=== PATIENT | male | born 1990 | race Two or more races ===

== ENCOUNTER 2020-02-13 12:52 | Emergency (ER) | payer OTHER ==
[~2020-02-13] VITALS: Ht 167.6 cm; Wt 52.2 kg
[2020-02-13 13:10] VITALS: BP 122/75
[2020-02-13] MEDS ORDERED: IBUPROFEN600 M1 ORAL (14:22)
[2020-02-13] MEDS ORDERED: TRAMADOL HCL50 MG ORAL (14:22)
[2020-02-13] MEDS ORDERED: ROBAXIN-500MG ORAL (14:22)
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
[2020-02-13] MEDS ORDERED: oxyCODONE HCL/Acetaminophen 5/325mg ORAL ONE (14:30)
--- NOTE | 2020-02-13 14:30 | Diagnostic Imaging Report ---
Indication: Pain, trauma Technique: 2 views of the left clavicle Comparison: none Findings: No acute fracture. No dislocation. Impression: Negative
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
[2020-02-13 14:40] VITALS: BP 122/75
--- NOTE | 2020-02-13 15:20 | Diagnostic Imaging Report ---
Indication: Pain, trauma Technique: 3 views of the cervical spine Comparison: none Findings: Bony alignment is normal. No prevertebral soft tissue swelling. No acute fractures. No dislocations. The vertebral body heights and disc spaces are preserved. Impression: Negative
== END 2020-02-13 14:45 | disposition home or self-care (01) ==
LOC: EDBD 12:52 → EMR 13:39
DX: S16.1XXA Strain of muscle, fascia and tendon at neck level, initial encounter (principal); S40.012A Contusion of left shoulder, initial encounter; V43.52XA Car driver injured in collision with other type car in traffic accident, initial encounter; Y92.411 Interstate highway as the place of occurrence of the external cause
CPT/HCPCS: 71045; 72040; 99284